=== PATIENT | female | born 1955 | race Caucasian/White ===

== ENCOUNTER 2024-05-11 13:37 | Outpatient (CLI) | payer MEDICARE, SELFPAY ==
[2024-05-11 13:53] LABS: Abs Immature Grans 0.08 10^3/uL (0.0-0.06); Absolute Basophil Count 0.09 10^3/uL (0.0-0.2); Absolute Eosinophil Count 0.52 10^3/uL (0.0-0.7); Absolute Lymphocyte Count 1.67 10^3/uL (1.2-3.4); Absolute Monocyte Count 0.48 10^3/uL (0.1-0.8); Basophils % 1.1 %; Eosinophils % 6.2 %; HGB 9.6 g/dL (11.2-15.7); Immature Grans % 0.9 %; Lymphocytes % 19.8 %; MCHC 29.1 % (32.0-36.0); MCV 79 fL (80-95); MPV 9.6 fL (8.0-11.0); Monocytes % 5.7 %; Neutrophils % 66.3 %; Platelet Count 600 10^3/uL (130-400); RBC 4.18 10^6/uL (3.93-5.22); RDW 22.4 % (11.7-14.6); RDW-SD 51.6 fL; WBC 8.44 10^3/uL (4.4-10.8)
[2024-05-11 14:03] LABS: Anisocytosis 2+; Diff Comment RBC Morph Reviewed
[2024-05-11 14:09] LABS: ALT 27 U/L (14-59); AST 19 U/L (15-37); Albumin 3.1 g/dL (3.4-5.0); Alkaline Phosphatase 228 U/L (46-116); Anion Gap 7.1 mmol/L (3-11); BUN 16 mg/dL (7-18); Bilirubin, Total 0.3 mg/dL (0.2-1.0); CO2 28.9 mmol/L (21.0-32.0); CREATININE 0.7 mg/dL (0.55-1.02); Calcium 9.1 mg/dL (8.5-10.1); Chloride 108 mmol/L (98-107); Estimated GFR 92.98 (mL/min/1.73m2); Glucose 97 mg/dL (74-106); Potassium 4.7 mmol/L (3.5-5.1); Sodium 144 mmol/L (136-145); Total Protein 6.4 g/dL (6.4-8.2)
== END 2024-05-11 13:38 | disposition home or self-care (01) ==
LOC: LBO 13:37
PROVIDERS: Visit Provider Internal Medicine Hematology & Oncology
DX: C17.0 Malignant neoplasm of duodenum (principal); D50.0 Iron deficiency anemia secondary to blood loss (chronic)
CPT/HCPCS: 36415; 80053; 85025

== ENCOUNTER 2024-09-07 01:59 | Outpatient (CLI) | payer MEDICARE, SELFPAY ==
[2024-09-07 08:26] LABS: Abs Immature Grans 0.01 10^3/uL (0.0-0.06); HCT 39.8 % (36.0-46.0); HGB 12.2 g/dL (11.2-15.7); Immature Grans % 0.2 %; MCH 24.1 pg (27.0-33.0); MCHC 30.7 % (32.0-36.0); MCV 79 fL (80-95); MPV 9.3 fL (8.0-11.0); Platelet Count 313 10^3/uL (130-400); RBC 5.07 10^6/uL (3.93-5.22); RDW 18.1 % (11.7-14.6); RDW-SD 50.8 fL; WBC 5.74 10^3/uL (4.4-10.8)
[2024-09-07 09:02] LABS: ALT 31 U/L (14-59); AST 22 U/L (15-37); Albumin 3.4 g/dL (3.4-5.0); Alkaline Phosphatase 146 U/L (46-116); Anion Gap 7.8 mmol/L (3-11); BUN 13 mg/dL (7-18); Bilirubin, Total 0.3 mg/dL (0.2-1.0); CO2 29.2 mmol/L (21.0-32.0); Calcium 9.2 mg/dL (8.5-10.1); Chloride 105 mmol/L (98-107); Estimated GFR 95.90 (mL/min/1.73m2); Glucose 96 mg/dL (74-106); Potassium 4.2 mmol/L (3.5-5.1); Sodium 142 mmol/L (136-145); Total Protein 6.7 g/dL (6.4-8.2)
[2024-09-07] MEDS: Barium Sulfate 2% W/V-Berry Smoothie 450 ML BTL PO (09:25)
[2024-09-07] MEDS: Barium Sulfate 2% W/V-Creamy Vanilla Smoothie 450 ML BTL PO (09:25)
[2024-09-07] MEDS: Omnipaque 350 MG/ML 100 ML BTL IJ (09:26)
[2024-09-07] MEDS: Normal Saline - Diluent 50 ML VIAL IJ (09:26)
--- NOTE | 2024-09-07 09:45 | DI.CT_ITS ---
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 Lung Computer Aided Detection (CAD) was utilized. CONTRAST MATERIAL: Intravenous: Omnipaque 350 contrast volume:75 mL Oral: Yes COMPARISON: DX XR CHEST ONE VIEW from 05/24/[address] ABDOMEN AND PELVIS W CONTRAST from 05/26/2024 DX from 05/28/2024 FINDINGS: CHEST: Tracheobronchial tree: Patent where visualized. No evidence of bronchiectasis. Pulmonary parenchyma: There is a 6 mm left lower lobe pulmonary nodule. There is a 3 mm nodule in the superior segment of the left lower lobe. There is a 3 mm nodule in the left upper lobe (series 10, image 39). There is a calcified granuloma in the right lower lobe. There are 2 tiny (less than 2 mm) nodules in the right lower lobe. No architectural distortion. Visualized thyroid gland: There is a multinodular thyroid gland. There findings suggestive of a large nodule measuring at least 2 cm in the left lobe. Nonemergent thyroid ultrasound should be considered for further evaluation. Mediastinum and Maye: No dominant adenopathy or fluid collection. The esophagus is unremarkable. Pleura: No effusion or pneumothorax. Heart: Mild cardiomegaly. No coronary artery calcifications are seen. No pericardial effusion. Pulmonary arteries: No pulmonary emboli are identified. Aorta: Thoracic aorta non-dilated. There is no evidence of dissection. Atherosclerotic calcification is present. Lymph nodes: Within normal limits. Soft tissues: Unremarkable. Bones:Within normal limits for the patient's age. ABDOMEN: Liver: Normal density. Stable hepatic cysts are present. The largest is in the right lobe measures 7.1 cm (series 22, image 35). No suspicious hepatic masses are seen. There is a persistent small fluid collection at the surgical site interposed between the stomach and the left lobe of the liver (series 22, image 41 measuring at least 2.2 x 1.3 cm. There is high density material seen within the lumen which may reflect oral contrast suggesting communication with the bowel. There also is a small amount of air noted. Portal, Superior Mesenteric, and Splenic Veins: Unremarkable. Gallbladder and Biliary Tract: The patient has had a prior Whipple's procedure. The bile ducts are stable compared to the prior examination. Pancreas: There is again seen mild pancreatic ductal dilatation and a pancreatic duct catheter in place. Spleen: Normal. Adrenals: No masses seen. Kidneys: Normal size, contour and axis. No radiodense stones or obstructive uropathy. There are stable left renal cysts. No follow-up is recommended. There is a stable hypodense indeterminate 1.3 cm left renal lesion. Nonemergent follow-up is recommended. Abdominal Aorta: Abdominal portion non-dilated. Atherosclerotic calcification is present. Bowel: There is diverticulosis seen in the colon but no evidence of acute diverticulitis. There is no evidence of bowel obstruction. There is no evidence of bowel wall thickening or appendicitis. Peritoneal Cavity: No new fluid collections are seen. There is no free fluid in the pelvis. No free air. Lymph Nodes: Within normal limits. Bones: Within normal limits for the patient's age. Soft Tissues: There has been interval removal of the right abdominal drainage catheter. PELVIS: Bladder: Symmetric distention, no gross wall thickening. Reproductive Organs: There is a 2 cm uterine fibroid present. Lymph Nodes: Within normal limits. Bones: Within normal limits. IMPRESSION: 1. There is a 2.2 x 1.3 cm contrast and air-fluid collection adjacent to the left lobe of the liver in the site of the previous fluid collection. The contrast within the collection suggest communication with the bowel. 2. Stable 1.3 cm left renal lesion. Nonemergent follow-up is recommended. 3. Interval removal of the drainage catheter. 4. There are few pulmonary nodules. The largest measures 6 mm and is in the left lower lobe. Metastatic disease should be considered in this patient. 5. Resolution of the pleural effusions and pulmonary infiltrates since 05/26/2024. 6. Thyroid nodules. Nonemergent thyroid ultrasound should be considered for further evaluation. RADIATION DOSE DELIVERED: 595.51mGy.cm Total DLP DATA REPOSITORY: All CT scans at this facility are submitted to the National Radiology Data Registry (NRDR) Dose Index Registry (DIR) with the [employer] (A[employer]). RADIATION OPTIMIZATION: All CT scans at this facility use at least one of these dose optimization techniques: automated exposure control; mA and/or kV adjustment per patient size (includes targeted exams where dose is matched to clinical indication); or iterative reconstruction.
[2024-09-07 19:04] LABS: CA 19-9 13 U/mL (<35)
== END 2024-09-07 02:19 ==
PROVIDERS: PCP Family Medicine; Visit Provider Internal Medicine Hematology & Oncology
DX: C17.0 Malignant neoplasm of duodenum (principal); R97.8 Other abnormal tumor markers
CPT/HCPCS: 74177; 80053; 71260; 85025; 86301; J3490

== ENCOUNTER 2024-10-06 01:42 | Outpatient (CLI) | payer MEDICARE, SELFPAY ==
[2024-10-06 09:04] LABS: Abs Immature Grans 0.01 10^3/uL (0.0-0.06); HCT 36.3 % (36.0-46.0); HGB 11.3 g/dL (11.2-15.7); Immature Grans % 0.2 %; MCH 24.5 pg (27.0-33.0); MCHC 31.1 % (32.0-36.0); MCV 79 fL (80-95); MPV 9.5 fL (8.0-11.0); Platelet Count 302 10^3/uL (130-400); RBC 4.61 10^6/uL (3.93-5.22); RDW 18.2 % (11.7-14.6); RDW-SD 47.2 fL; WBC 5.38 10^3/uL (4.4-10.8)
[2024-10-06] MEDS: Normal Saline - Diluent 50 ML VIAL IJ (09:33)
[2024-10-06] MEDS: Gadoterate meglumine 20 ML VIAL IVP (09:35)
--- NOTE | 2024-10-06 09:35 | DI.MRI_ITS ---
Exam(s) MR ABDOMEN WO/W EXAM: MR ABDOMEN WO/W CLINICAL HISTORY: KIDNEY LESION, TULE RIVER LEFT N28.9 TECHNIQUE: Multiplanar multisequence MRI of the Abdomen was performed. CONTRAST MATERIAL: IV Contrast: 12 mL of Dotarem contrast administered. COMPARISON: CT CT ABDOMEN AND PELVIS W CONTRAST from 05/26/2024 DX from 05/28/[address] CHEST/ABD/PEL W from 09/07/2024 FINDINGS: Exam is limited by large field of view employed Lung bases: Unremarkable. Liver: Liver cysts again noted. No suspicious masses. Fluid is noted in the region of the falciform ligament and gallbladder fossa. Pancreas: Unremarkable status post Whipple procedure. Stable dilatation of the pancreatic duct in the body and tail. Gallbladder and Bile Ducts: No biliary dilatation. Status post Whipple procedure. Adrenals: Unremarkable. Kidneys: Cysts in the upper and mid left kidney. 11 millimeter circumscribed density in the mid to lower left kidney. It is homogeneously low signal on T2 weighted images and I so intense on T1 weighted images. There is no visible enhancement. Findings likely represent a proteinaceous cyst. Spleen: Unremarkable. Aorta: Unremarkable. Soft Tissues: Unremarkable. Bone: Unremarkable. Lymph Nodes: Unremarkable. Stomach and bowel: Procedure. No abnormal bowel dilatation. Peritoneal cavity: Unremarkable. No evidence of ascites. IMPRESSION: The 11 millimeter left renal lesion is difficult to evaluate due to small size and large [id number] fluid on this examination. The findings likely represent a proteinaceous cyst. Follow-up ultrasound could be considered. DATA REPOSITORY:
[2024-10-06 09:52] LABS: ALT 22 U/L (14-59); AST 17 U/L (15-37); Albumin 3.4 g/dL (3.4-5.0); Alkaline Phosphatase 114 U/L (46-116); Anion Gap 9.7 mmol/L (3-11); BUN 14 mg/dL (7-18); Bilirubin, Total 0.4 mg/dL (0.2-1.0); CO2 28.3 mmol/L (21.0-32.0); Calcium 9.1 mg/dL (8.5-10.1); Chloride 106 mmol/L (98-107); Estimated GFR 92.41 (mL/min/1.73m2); Glucose 92 mg/dL (74-106); Potassium 4.0 mmol/L (3.5-5.1); Sodium 144 mmol/L (136-145); Total Protein 6.8 g/dL (6.4-8.2)
== END 2024-10-06 02:02 ==
LOC: DI 01:42
PROVIDERS: PCP Family Medicine; Visit Provider Internal Medicine Hematology & Oncology
DX: N28.9 Disorder of kidney and ureter, unspecified (principal); C24.1 Malignant neoplasm of ampulla of Vater
CPT/HCPCS: 74183; 80053; 85025

== ENCOUNTER 2024-11-03 10:57 | Outpatient (CLI) | payer MEDICARE, SELFPAY ==
[2024-11-03 10:54] LABS: Abs Immature Grans 0.02 10^3/uL (0.0-0.06); HCT 38.6 % (36.0-46.0); HGB 12.3 g/dL (11.2-15.7); Immature Grans % 0.4 %; MCH 26.2 pg (27.0-33.0); MCHC 31.9 % (32.0-36.0); MCV 82 fL (80-95); MPV 9.3 fL (8.0-11.0); Platelet Count 297 10^3/uL (130-400); RBC 4.70 10^6/uL (3.93-5.22); RDW 20.3 % (11.7-14.6); RDW-SD 56.6 fL; WBC 5.47 10^3/uL (4.4-10.8)
[2024-11-03 11:14] LABS: ALT 41 U/L (14-59); AST 34 U/L (15-37); Albumin 3.8 g/dL (3.4-5.0); Alkaline Phosphatase 142 U/L (46-116); Anion Gap 5.6 mmol/L (3-11); BUN 12 mg/dL (7-18); Bilirubin, Total 0.5 mg/dL (0.2-1.0); CO2 28.4 mmol/L (21.0-32.0); Calcium 9.1 mg/dL (8.5-10.1); Chloride 108 mmol/L (98-107); Estimated GFR 92.41 (mL/min/1.73m2); Glucose 84 mg/dL (74-106); Magnesium 2.0 mg/dL (1.8-2.4); Potassium 4.0 mmol/L (3.5-5.1); Sodium 142 mmol/L (136-145); Total Protein 7.0 g/dL (6.4-8.2)
[2024-11-03 11:19] LABS: Anisocytosis 2+; Microcytosis 1+
[2024-11-04 11:04] LABS: CA 19-9 18 U/mL (<35)
== END 2024-11-03 10:58 | disposition home or self-care (01) ==
LOC: LBO 10:59
PROVIDERS: PCP Family Medicine; Visit Provider Internal Medicine Hematology & Oncology
DX: C24.1 Malignant neoplasm of ampulla of Vater (principal)
CPT/HCPCS: 36415; 80053; 83735; 85025; 86301

== ENCOUNTER 2024-11-23 12:43 | Outpatient (CLI) | payer MEDICARE, SELFPAY ==
[2024-11-23 13:23] LABS: Abs Immature Grans 0.04 10^3/uL (0.0-0.06); HCT 37.1 % (36.0-46.0); HGB 11.8 g/dL (11.2-15.7); Immature Grans % 0.7 %; MCH 27.0 pg (27.0-33.0); MCHC 31.8 % (32.0-36.0); MCV 85 fL (80-95); MPV 9.2 fL (8.0-11.0); Platelet Count 354 10^3/uL (130-400); RBC 4.37 10^6/uL (3.93-5.22); RDW 21.6 % (11.7-14.6); RDW-SD 64.4 fL; WBC 5.84 10^3/uL (4.4-10.8)
[2024-11-23 13:42] LABS: ALT 26 U/L (14-59); AST 22 U/L (15-37); Albumin 3.8 g/dL (3.4-5.0); Alkaline Phosphatase 147 U/L (46-116); Anion Gap 6.5 mmol/L (3-11); BUN 14 mg/dL (7-18); Bilirubin, Total 0.4 mg/dL (0.2-1.0); CO2 28.5 mmol/L (21.0-32.0); Calcium 9.2 mg/dL (8.5-10.1); Chloride 107 mmol/L (98-107); Estimated GFR 92.41 (mL/min/1.73m2); Glucose 83 mg/dL (74-106); Magnesium 2.4 mg/dL (1.8-2.4); Potassium 4.7 mmol/L (3.5-5.1); Sodium 142 mmol/L (136-145); Total Protein 7.3 g/dL (6.4-8.2)
[2024-11-23 23:21] LABS: CA 19-9 22 U/mL (<35)
== END 2024-11-23 12:44 | disposition home or self-care (01) ==
LOC: LBO 12:43
PROVIDERS: PCP Family Medicine; Visit Provider Internal Medicine Hematology & Oncology
DX: C24.1 Malignant neoplasm of ampulla of Vater (principal)
CPT/HCPCS: 36415; 80053; 83735; 85025; 86301

== ENCOUNTER 2024-12-17 00:18 | Outpatient (RCR) | payer MEDICARE, SELFPAY ==
[2024-12-15 09:48] LABS: Abs Immature Grans 0.01 10^3/uL (0.0-0.06); HCT 35.0 % (36.0-46.0); HGB 11.3 g/dL (11.2-15.7); Immature Grans % 0.2 %; MCH 28.1 pg (27.0-33.0); MCHC 32.3 % (32.0-36.0); MCV 87 fL (80-95); MPV 9.8 fL (8.0-11.0); Platelet Count 274 10^3/uL (130-400); RBC 4.02 10^6/uL (3.93-5.22); RDW 22.5 % (11.7-14.6); RDW-SD 69.2 fL; WBC 5.66 10^3/uL (4.4-10.8)
[2024-12-15 09:56] LABS: Anisocytosis 2+
[2024-12-15 10:07] LABS: ALT 32 U/L (14-59); AST 22 U/L (15-37); Albumin 3.6 g/dL (3.4-5.0); Alkaline Phosphatase 154 U/L (46-116); Anion Gap 8.9 mmol/L (3-11); BUN 14 mg/dL (7-18); Bilirubin, Total 0.6 mg/dL (0.2-1.0); CO2 27.1 mmol/L (21.0-32.0); Calcium 9.0 mg/dL (8.5-10.1); Chloride 105 mmol/L (98-107); Estimated GFR 78.72 (mL/min/1.73m2); Glucose 100 mg/dL (74-106); Magnesium 2.2 mg/dL (1.8-2.4); Potassium 4.3 mmol/L (3.5-5.1); Sodium 141 mmol/L (136-145); Total Protein 6.8 g/dL (6.4-8.2)
[2024-12-15] MEDS: Normal Saline Flush 10 ML SYR IVP (10:15)
[2024-12-16 09:43] LABS: CA 19-9 22 U/mL (<35)
[2024-12-17 12:02] VITALS: BP 115/72; PULSE 60; RESP 16; TEMP 36.5; O2SAT 99
[2024-12-17] MEDS: Normal Saline Flush 10 ML SYR IVP (12:18)
== END 2024-12-23 23:59 | disposition home or self-care (01) ==
LOC: INF 00:18
PROVIDERS: PCP Family Medicine; Visit Provider Internal Medicine Hematology & Oncology
DX: C24.1 Malignant neoplasm of ampulla of Vater (principal); Z45.2 Encounter for adjustment and management of vascular access device
CPT/HCPCS: 36591; 80053; 83735; 85025; 86301

== ENCOUNTER 2025-01-14 00:13 | Outpatient (RCR) | payer MEDICARE, SELFPAY ==
[2024-12-29] MEDS: Normal Saline Flush 10 ML SYR IVP (08:45)
[2024-12-29 09:00] LABS: Abs Immature Grans 0.01 10^3/uL (0.0-0.06); HCT 35.1 % (36.0-46.0); HGB 11.4 g/dL (11.2-15.7); Immature Grans % 0.2 %; MCH 28.7 pg (27.0-33.0); MCHC 32.5 % (32.0-36.0); MCV 88 fL (80-95); MPV 10.2 fL (8.0-11.0); Platelet Count 265 10^3/uL (130-400); RBC 3.97 10^6/uL (3.93-5.22); RDW 20.6 % (11.7-14.6); RDW-SD 66.1 fL; WBC 5.90 10^3/uL (4.4-10.8)
[2024-12-29 09:08] LABS: ALT 34 U/L (14-59); AST 27 U/L (15-37); Albumin 3.3 g/dL (3.4-5.0); Alkaline Phosphatase 139 U/L (46-116); Anion Gap 8.8 mmol/L (3-11); BUN 16 mg/dL (7-18); Bilirubin, Total 0.4 mg/dL (0.2-1.0); CO2 26.2 mmol/L (21.0-32.0); Calcium 8.6 mg/dL (8.5-10.1); Chloride 106 mmol/L (98-107); Estimated GFR 92.41 (mL/min/1.73m2); Glucose 103 mg/dL (74-106); Magnesium 2.1 mg/dL (1.8-2.4); Potassium 4.4 mmol/L (3.5-5.1); Sodium 141 mmol/L (136-145); Total Protein 6.4 g/dL (6.4-8.2)
[2024-12-29 09:40] LABS: Anisocytosis 2+; Microcytosis 1+
[2024-12-30 11:03] LABS: CA 19-9 24 U/mL (<35)
[2024-12-31 11:27] VITALS: BP 99/65; PULSE 67; RESP 16; TEMP 36.3; O2SAT 99
[2024-12-31] MEDS: Normal Saline Flush 10 ML SYR IVP (11:41)
[2025-01-12 09:08] LABS: Abs Immature Grans 0.02 10^3/uL (0.0-0.06); HCT 32.5 % (36.0-46.0); HGB 10.5 g/dL (11.2-15.7); Immature Grans % 0.3 %; MCH 27.9 pg (27.0-33.0); MCHC 32.3 % (32.0-36.0); MCV 86 fL (80-95); MPV 9.8 fL (8.0-11.0); Platelet Count 244 10^3/uL (130-400); RBC 3.76 10^6/uL (3.93-5.22); RDW 19.9 % (11.7-14.6); RDW-SD 61.8 fL; WBC 6.68 10^3/uL (4.4-10.8)
[2025-01-12 09:26] LABS: Magnesium 2.0 mg/dL (1.6-2.6)
[2025-01-12 09:28] LABS: ALT 42 U/L (10-49); AST 57 U/L (<34); Albumin 3.7 g/dL (3.4-5.0); Alkaline Phosphatase 130 U/L (46-116); Anion Gap 8.3 mmol/L (3-11); BUN 15 mg/dL (9-23); Bilirubin, Total 0.40 mg/dL (0.2-1.2); CO2 24.7 mmol/L (20.0-31.0); Calcium 8.8 mg/dL (8.3-10.6); Chloride 110 mmol/L (98-107); Glucose 85 mg/dL (74-106); Potassium 4.5 mmol/L (3.5-5.1); Sodium 143 mmol/L (136-145); Total Protein 5.8 g/dL (5.7-8.2)
[2025-01-12] MEDS: Normal Saline Flush 10 ML SYR IVP (10:15)
[2025-01-13 12:06] LABS: CA 19-9 23 U/mL (<35)
[2025-01-14] MEDS: Normal Saline Flush 10 ML SYR IVP (10:50)
== END 2025-01-22 23:59 | disposition home or self-care (01) ==
LOC: INF 00:13
PROVIDERS: PCP Family Medicine; Visit Provider Internal Medicine Hematology & Oncology
DX: C24.1 Malignant neoplasm of ampulla of Vater (principal); Z45.2 Encounter for adjustment and management of vascular access device
CPT/HCPCS: 36591; 80053; 96523; 83735; 85025; 86301

== ENCOUNTER 2025-02-22 09:45 | Outpatient (RCR) | payer MEDICARE, SELFPAY ==
[2025-01-26 09:02] LABS: Abs Immature Grans 0.04 10^3/uL (0.0-0.06); HCT 32.5 % (36.0-46.0); HGB 10.3 g/dL (11.2-15.7); Immature Grans % 0.6 %; MCH 27.3 pg (27.0-33.0); MCHC 31.7 % (32.0-36.0); MCV 86 fL (80-95); MPV 9.6 fL (8.0-11.0); Platelet Count 287 10^3/uL (130-400); RBC 3.77 10^6/uL (3.93-5.22); RDW 18.6 % (11.7-14.6); RDW-SD 58.5 fL; WBC 6.47 10^3/uL (4.4-10.8)
[2025-01-26] MEDS: Normal Saline Flush 10 ML SYR IVP (09:15)
[2025-01-26 09:27] LABS: Magnesium 2.2 mg/dL (1.6-2.6)
[2025-01-26 09:28] LABS: ALT 44 U/L (10-49); AST 24 U/L (<34); Albumin 3.8 g/dL (3.2-5.0); Alkaline Phosphatase 188 U/L (46-116); Anion Gap 8.2 mmol/L (3-11); BUN 14 mg/dL (9-23); Bilirubin, Total 0.30 mg/dL (0.2-1.2); CO2 25.8 mmol/L (20.0-31.0); Calcium 8.9 mg/dL (8.3-10.6); Chloride 108 mmol/L (98-107); Glucose 124 mg/dL (74-106); Potassium 4.4 mmol/L (3.5-5.1); Sodium 142 mmol/L (136-145); Total Protein 6.1 g/dL (5.7-8.2)
[2025-01-27 11:19] LABS: CA 19-9 19 U/mL (<35)
[2025-02-09 11:53] LABS: ALT 26 U/L (10-49); AST 39 U/L (<34); Albumin 3.9 g/dL (3.2-5.0); Alkaline Phosphatase 151 U/L (46-116); Anion Gap 8.3 mmol/L (3-11); BUN 13 mg/dL (9-23); Bilirubin, Total 0.4 mg/dL (0.2-1.2); CO2 25.7 mmol/L (20.0-31.0); Calcium 8.9 mg/dL (8.3-10.6); Chloride 109 mmol/L (98-107); Glucose 101 mg/dL (74-106); Magnesium 2.1 mg/dL (1.6-2.6); Potassium 4.4 mmol/L (3.5-5.1); Sodium 143 mmol/L (136-145); Total Protein 6.3 g/dL (5.7-8.2)
[2025-02-09] MEDS: Normal Saline Flush 10 ML SYR IVP (12:49)
[2025-02-09 15:56] LABS: HCT 33.0 % (36.0-46.0); HGB 10.2 g/dL (11.2-15.7); MCH 26.1 pg (27.0-33.0); MCHC 30.9 % (32.0-36.0); MCV 84 fL (80-95); MPV 10.0 fL (8.0-11.0); Platelet Count 251 10^3/uL (130-400); RBC 3.91 10^6/uL (3.93-5.22); RDW 18.4 % (11.7-14.6); RDW-SD 56.3 fL; WBC 5.48 10^3/uL (4.4-10.8)
[2025-02-09 15:57] LABS: Abs Immature Grans 0.02 10^3/uL (0.0-0.06); Immature Grans % 0.4 %
[2025-02-10 09:31] LABS: CA 19-9 23 U/mL (<35)
[2025-02-11 13:20] VITALS: BP 124/78; PULSE 65; RESP 18; TEMP 37.2; O2SAT 100
[2025-02-11] MEDS: Normal Saline Flush 10 ML SYR IVP (13:54)
[2025-02-22 11:00] LABS: Abs Immature Grans 0.02 10^3/uL (0.0-0.06); HCT 34.4 % (36.0-46.0); HGB 10.7 g/dL (11.2-15.7); Immature Grans % 0.4 %; MCH 25.8 pg (27.0-33.0); MCHC 31.1 % (32.0-36.0); MCV 83 fL (80-95); MPV 9.9 fL (8.0-11.0); Platelet Count 245 10^3/uL (130-400); RBC 4.14 10^6/uL (3.93-5.22); RDW 18.6 % (11.7-14.6); RDW-SD 54.4 fL; WBC 5.21 10^3/uL (4.4-10.8)
[2025-02-22 11:17] LABS: ALT 25 U/L (10-49); AST 30 U/L (<34); Albumin 3.9 g/dL (3.2-5.0); Alkaline Phosphatase 135 U/L (46-116); Anion Gap 9.1 mmol/L (3-11); BUN 12 mg/dL (9-23); Bilirubin, Total 0.4 mg/dL (0.2-1.2); CO2 24.9 mmol/L (20.0-31.0); Calcium 8.9 mg/dL (8.3-10.6); Chloride 110 mmol/L (98-107); Glucose 94 mg/dL (74-106); Magnesium 2.1 mg/dL (1.6-2.6); Potassium 4.2 mmol/L (3.5-5.1); Sodium 144 mmol/L (136-145); Total Protein 6.3 g/dL (5.7-8.2)
[2025-02-22] MEDS: Normal Saline Flush 10 ML SYR IVP (11:21)
[2025-02-22 18:39] LABS: CA 19-9 18 U/mL (<35)
== END 2025-02-22 23:59 | disposition home or self-care (01) ==
LOC: INF 09:45
PROVIDERS: PCP Family Medicine; Visit Provider Internal Medicine Hematology & Oncology
DX: C24.1 Malignant neoplasm of ampulla of Vater (principal); Z45.2 Encounter for adjustment and management of vascular access device
CPT/HCPCS: 36591; 80053; 96365; 96523; 83735; 85025; 86301